=== PATIENT | female | born 1955 | race Caucasian/White ===

== ENCOUNTER 2016-10-31 09:44 | Emergency (ER) | payer BC, OTHER ==
[2016-10-31 10:17] VITALS: BP 143/89
--- NOTE | 2016-10-31 10:57 | RAD ---
Indication: Lateral RIGHT ankle pain and bruising without known injury. Comparison: October 06, 2011 RIGHT foot radiographs. Technique: AP, mortise, and lateral views RIGHT ankle. Report: Bone density appears decreased. No focal osteolysis, fracture, or osteochondral lesion evident. Minimal osteophytosis noted throughout. No significant joint space narrowing at the talocrural, subtalar, or transverse tarsal joints. Small Achilles tendon insertion and plantar fascia origin bone spurs. Mild nonfocal soft tissue swelling. IMPRESSION: Mild osteoarthritis. Bone density appears decreased. Consider DEXA scan for further assessment.
--- NOTE | 2016-10-31 12:20 | UC ---
Lower Extremity/Ankle HPI - HPI Summary HPI Summary: Right lateral ankle foot pain, no discrete injury has been walking in the snow and slipping weight bear with out difficulty, able to drive here today - History of Current Complaint Chief Complaint: UCLowerExtremity Stated Complaint: RIGHT ANKLE PAIN Time Seen by Provider: 10/31/16 12:18 Hx Obtained From: Patient ?: No Onset/Duration: Sudden Onset, Lasting Days, Still Present Severity Initially: Mild Severity Currently: Mild Pain Scale Used: 0-10 Numeric - 4 Aggravating Factor(s): Standing, Ambulation Alleviating Factor(s): Rest, Elevation Able to Bear Weight: Yes - Allergies/Home Medications Allergies/Adverse Reactions: Allergies Allergy/AdvReac Type Severity Reaction Status Date / Time Latex Allergy Severe Blisters Verified 10/31/16 10:09 Sulfa Drugs Allergy Intermediate N/V, Rash Verified 10/31/16 10:09 Amoxicillin [From Augmentin] AdvReac Severe See Comment Verified 10/31/16 10:09 Clavulanic Acid AdvReac Severe Nausea And Verified 10/31/16 10:09 [From Augmentin] Vomiting PMH/Surg Hx/FS Hx/Imm Hx Previously Healthy: No Endocrine History Of: Reports: Thyroid Disease - Hypothyroidism Comment Only: Diabetes - prior to G. Bypass GI/ History Of: Reports: Gall Bladder Disease, Kidney Stones - HX OF LEFT STONE FOR 4 YRS. HX OF LEFT STENT Denies: Ulcer, Gastrointestinal Bleed Psychological History Of: Reports: Depression Other History Of: Negative For: Anticoagulant Therapy - Surgical History Surgical History: Yes Surgery Procedure, Year, and Place: 1981 TUBAL LIGATION- [place]. 1997 BILAT CARPAL TUNNEL RELEASE- [place]. 2003 D&C ABLATION- [place]. ?? YEAR LAP ASHLEIGH- DRS OFFICE- [place]. 2010 LITHOTRIPSY X 4- NEGATIVE RESULTS- [facility] [place], [place]. 2011 GASTRIC BYPASS- [facility] [place] [place]. 2012 EXP LAP- [facility] [place] [place]. 2013 ROTATOR CUFF REPAIR- [place]. 03/2015 INSERTION OF LEFT URETERAL STENT- [facility] [place] [place] - Family History Known Family History: Positive: Unknown Family History: denies cardio, vascular issues in family lineage - Social History Occupation: Unemployed Lives: With Family Alcohol Use: None Substance Use Type: None Smoking Status (MU): Former Smoker Type: Cigarettes Amount Used/How Often: ~1 1/2 PPD Length of Time of Smoking/Using Tobacco: 14 Years Have You Smoked in the Last Year: No When Did the Patient Quit Smoking/Using Tobacco: 1989 Household Exposure Type: Cigarettes - Immunization History Most Recent Influenza Vaccination: June 2016 Most Recent Tetanus Shot: Unk Most Recent Pneumonia Vaccination: June 2016 Review of Systems Constitutional: Negative Skin: Bruising - right lateral ankle Eyes: Negative ENT: Negative Respiratory: Negative Cardiovascular: Negative Gastrointestinal: Negative Genitourinary: Negative Motor: Negative Neurovascular: Negative Musculoskeletal: Arthralgia - right lateral ankle Neurological: Negative Psychological: Negative, Anxious All Other Systems Reviewed And Are Negative: Yes Physical Exam Triage Information Reviewed: Yes Appearance: Well-Appearing - appears older than stated age, No Pain Distress, Well-Nourished Vital Signs: Initial Vital Signs Temp 98.4 F 10/31/16 10:07 Pulse 66 10/31/16 10:07 Resp 16 10/31/16 10:07 BP 143/89 10/31/16 10:07 Pulse Ox 99 10/31/16 10:07 Vital Signs Reviewed: Yes Eye Exam: Normal Eyes: Positive: Conjunctiva Clear ENT Exam: Normal ENT: Positive: Normal ENT inspection, Hearing grossly normal. Negative: Nasal congestion, Nasal drainage, Tonsillar swelling, Tonsillar exudate, Trismus, Muffled/hoarse voice Neck exam: Normal Neck: Positive: Supple, Nontender Respiratory Exam: Normal Respiratory: Positive: Chest non-tender, No respiratory distress, No accessory muscle use Cardiovascular Exam: Normal Cardiovascular: Positive: RRR, Pulses Normal, Brisk Capillary Refill Musculoskeletal Exam: Other Musculoskeletal: Positive: Strength Intact, ROM Intact, No Edema, Other: - bruising lateral aspect of right ankle Neurological Exam: Normal Neurological: Positive: Alert, Muscle Tone Normal Psychological Exam: Normal Psychological: Positive: Normal Response To Family Skin Exam: Normal Diagnostics - Laboratory Diagnostic Studies Completed/Ordered: x-ray negative for acute injury Lower Extremity Course/Dx - Course Course Of Treatment: Rice cam boot, tylenol, follow with Dr. Mcgrath on - Differential Dx/Diagnosis Differential Diagnosis/HQI/PQRI: Contusion, Fracture (Closed), Sprain, Strain Provider Diagnoses: R ankle contusion Discharge - Discharge Plan Condition: Stable Disposition: HOME Patient Education Materials: Acetaminophen (By mouth), Osteoarthritis (ED), Foot Contusion (ED), RICE Therapy (ED) Referrals: Moreno Mcgrath MD [Medical Doctor] - 11/05/16 Paige Morales MD [Primary Care Provider] -
== END 2016-10-31 12:40 | disposition home or self-care (01) ==
LOC: UCCORT 09:44
DX: S90.01XA Contusion of right ankle, initial encounter (principal); W00.0XXA Fall on same level due to ice and snow, initial encounter; E03.9 Hypothyroidism, unspecified; N20.0 Calculus of kidney; Z87.891 Personal history of nicotine dependence; Z98.84 Bariatric surgery status; Z77.22 Contact with and (suspected) exposure to environmental tobacco smoke (acute) (chronic); Z88.1 Allergy status to other antibiotic agents; Z88.2 Allergy status to sulfonamides; Z91.040 Latex allergy status
CPT/HCPCS: 99212; G0463

== ENCOUNTER 2018-07-28 06:05 | Inpatient (IN) | payer BC ==
--- NOTE | 2018-07-19 13:27 | HP ---
CC: Dr. Paige Morales.* DATE OF ADMISSION: 07/28/18 ATTENDING SURGEON: Dr. Chandan Costa * (RIDGE Hodge dictating) CHIEF COMPLAINT: 1. Umbilical hernia. 2. Excess skin following prior bariatric surgery. HISTORY OF PRESENT ILLNESS: This is a 63-year-old generally healthy female who underwent Shyann-en-Y gastric bypass with Dr. Costa in 2011. She had weight loss of about 60 pounds with regain of january 10 and her weight has been stable in the 170s since that time. More recently she was seen for a complaint of lower abdominal pain. CT scan on 12/25/17 did show fatty liver changes, diverticulosis, but without diverticulitis and a small periumbilical hernia. She was seen at that time by Dr. Costa, who felt that her pain was related to the umbilical hernia. In addition, related to the abdominal pannus, she has had ongoing problems with rash, skin breakdown, and increased odor. She has used mostly local and topical measures to keep the skin from breaking down and at the present time there is no active infection nor any open areas. She has not had any GI symptoms related to the umbilical hernia. Dr. Costa was also in to see her today and has explained to her the indications for surgery. The risks , benefits, and alternatives. She understands the need for postoperative drains and expected followup. She would like to proceed as scheduled with open repair of umbilical hernia with possible mesh and panniculectomy. PAST MEDICAL HISTORY: Morbid obesity (status post Shyann-en-Y gastric bypass), nephrolithiasis, environmental allergies, depression, hypothyroidism. PAST SURGICAL HISTORY: Include Shyann-en-Y gastric bypass 2011, laparoscopic lysis of adhesions, and repair of internal hernia 2012. She has also undergone prior laparoscopic cholecystectomy, excision of a right foot bunion, and excision of cysts of the left neck and of the back (all benign). She has also undergone multiple lithotripsies for kidney stones with most recent renal ultrasound in the past year showing no evidence of nephrolithiasis. No reported surgical or anesthesia complications. CURRENT MEDICATIONS: 1. Minocycline 75 mg once daily. 2. Paroxetine 10 mg once daily. 3. Levothyroxine 200 mcg once daily. 4. Aspirin 81 mg once daily (she will hold preoperatively, her last dose being 07/23/18). 5. Bupropion XL 150 mg once daily. 6. Fish oil once daily (last dose 07/23/18). 7. Vitamin D3 2000 IU once daily. 8. Multivitamin once daily. 9. Turmeric 500 mg once daily. 10. Cetirizine 10 mg once daily. 11. Fluocinonide 0.025% topical cream p.r.n. for facial lesions. 12. Vitamin B12 1000 mcg once daily. DRUG ALLERGIES: SULFA and AUGMENTIN both cause nausea, LATEX has caused blistering and itching. FAMILY HISTORY: Negative for anesthesia problems, bleeding or clotting disorders. SOCIAL HISTORY: The patient is . She is not currently working. She is a former smoker who quit in 1989. She denies history of alcohol or other recreational drugs. REVIEW OF SYSTEMS: General: No recent constitutional symptoms or acute illnesses. Her weight has been stable. HEENT: No problems reported. She does use full upper and lower dentures. Cardiovascular: No chest pain, palpitations. She does have a remote history of murmur. She did have an episode of chest pain, which was worked up at [facility] with a negative workup. No interval problems reported. Respiratory: No history of asthma, chronic cough, or shortness of breath. GI: No problems reported. I did not inquire regarding colonoscopy. : No problems reported other than nephrolithiasis. WEDDING CONSULTANT: She is up-to-date within the past year for breast exam, mammogram, pelvic exam and Pap smear, all reportedly normal. Neuropsych: History of depression. No additions. Remainder of review of systems is negative. PHYSICAL EXAMINATION GENERAL: Well-nourished, well-developed female, in no acute distress. SKIN: Warm and dry, no suspicious rashes or lesions noted. VITAL SIGNS: Height 5 feet 2 inches, weight 171 pounds, 1BMI 31. Temperature 98.2, blood pressure 118/74, pulse 68, respirations 16. HEENT: Pupils equal and round, reactive. EOMs intact. No conjunctival pallor. Oropharynx: Full upper and lower dentures. No intraoral lesions. NECK: No lymphadenopathy, thyromegaly, or masses. There is a well-healed left anterior cervical incision from prior cyst removal. LUNGS: Clear to auscultation. No wheezes. HEART: Regular rate and rhythm. No murmur noted. BREASTS: Not examined. ABDOMEN: Well-healed surgical scars. She does have a small umbilical hernia, which is nontender on today's exam. She does have a significant lower abdominal pannus. There is no skin breakdown or evidence of infection or rash. The abdomen is otherwise soft and nontender. BACK: No spinous process or CVA tenderness. EXTREMITIES: No edema. GENITALIA: Not done. RECTAL: Not done. NEUROLOGIC: Grossly intact. IMPRESSION: 1. Umbilical hernia. 2. Excess skin (pannus) following prior bariatric surgery. PLAN: 1. Repair Umbilical Hernia 2. Panniculectomy RIDGE HODGE [id number]/[facility] #: [id number] MTDD
[~2018-07-28 06:05] MED LIST: Buffered Lidocaine 0.9% SYRIN* 5 ML/SYR SYRINGE INTRADERM ONE; Famotidine IV* 10 MG/ML 2 ML (20 mg) IV ONE
[2018-07-28] MEDS ORDERED: ceFAZolin 2 GM PREMIX in ORs 2 GM/50 ML BAG IVPB ONE (06:12)
[2018-07-28] MEDS ORDERED: Heparin VIAL(*) 5000 UNITS/ML VIAL (FIVE THOUSAND) ONE (06:12)
[2018-07-28] MEDS ORDERED: Famotidine IV* 10 MG/ML 2 ML (20 mg) ONE (06:13)
[2018-07-28] MEDS ORDERED: Morphine VIAL* 4 MG/ML VIAL (1 ml vial) IV ONE ×2 (06:16→09:33)
--- OUTSIDE RECORDS SUMMARY | 2018-07-28 06:31 | XMS REPORT ---
:1955 External Reference #:[id number] Author Organization [employer] Address [address] [place] [address] Phone [phone] Care Team Providers Name Role Phone Paige Morales MD Primary Care Physician Unavailable Payers Type Date Identification Numbers Payment Provider Subscriber Commercial Policy Number: [id number] [employer] Pinky Garrett PayID: [id number] [address] [address] [place] [address] Problems Description No Information Family History Date Family Member(s) Problem(s) Comments General Cervical Cancer sister General Heart Disease brother Social History Type Date Description Comments Lives With Occupation works at [employer] ETOH Use Never used alcohol Smoking Patient is a former smoker Exercise Type/Frequency Does not exercise Allergies, Adverse Reactions, Alerts Date Description Reaction Status Severity Comments 11/05/2016 Latex active Blisters and itching 11/05/2016 Sulfa Antibiotics active nausea 11/05/2016 Augmentin active nausea Medications Medication Date Status Form Strength Qnty SIG Indications Ordering Provider Minocycline HCL / Active Capsules 75mg 1 po daily Davi, 0000 MD Franco Paroxetine HCL / Active Tablets 10mg 1 po daily Andrew, 0000 MD Paige Levothyroxine / Active Tablets 200mcg 1 by mouth Unknown Sodium 0000 every day Multi Vitamin 00/ Active Tablets 1 by mouth Unknown 0000 every day Fish Oil / Active Capsules 1 by mouth Unknown 0000 every day Aspirin Ec / Active Tablets DR 81mg 1 by mouth Unknown 0000 every day Vitamin B-12 00/00/ Active Tablets 1 by mouth Unknown 0000 every day Acetaminophen 0000/ Active Tablets 500mg 2 tabs 3 Unknown 0000 times daily prn D3 High Potency 00/00/ Active Capsules 1000Unit take one Unknown 0000 capsule/tabl et daily by mouth ALL Day Allergy / Active Tablets Unknown 0000 Turmeric / Active Capsules 500mg take one Unknown 0000 capsule/tabl et daily by mouth Fluocinonide / Active Cream 0.025% apply Unknown 0000 topically once daily as needed Hydrocodone-Trent / Hx Tablets 5-325mg 1 po every Unknown taminophen 0000 - 4-6 hours 11/11/ prn. 2016 Ibuprofen / Hx Tablets 600mg prescribed Unknown 0000 - by [facility] but patient is 2017 not using. Ondansetron / Hx Tablets 4mg 1 po prn Unknown 0000 Dispers Tamsulosin HCL / Hx Capsules 0.4mg Unknown 0000 - 2016 Vital Signs Date Vital Result Comment 07/19/2018 Height 62 inches 5'2" Weight 171.00 lb Heart Rate 68 /min BP Systolic 118 mmHg BP Diastolic 74 mmHg Respiratory Rate 16 /min Body Temperature 98.2 F BMI (Body Mass Index) 31.3 kg/m2 12/28/2017 Heart Rate 76 /min Respiratory Rate 16 /min Body Temperature 98.5 F 12/17/2017 Height 62 inches 5'2" Weight 181.00 lb Heart Rate 76 /min BP Systolic 100 mmHg BP Diastolic 70 mmHg Respiratory Rate 18 /min Body Temperature 98.1 F BMI (Body Mass Index) 33.1 kg/m2 03/04/2017 Height 62 inches 5'2" Heart Rate 52 /min BP Systolic 106 mmHg BP Diastolic 78 mmHg Respiratory Rate 16 /min Pain Level 7 01/21/2017 Height 62 inches 5'2" Heart Rate 61 /min BP Systolic 94 mmHg BP Diastolic 68 mmHg Respiratory Rate 20 /min Pain Level 3 O2 % BldC Oximetry 97 % 12/24/2016 Height 62 inches 5'2" Weight 165.00 lb Heart Rate 68 /min BP Systolic 130 mmHg BP Diastolic 86 mmHg Respiratory Rate 20 /min Pain Level 7 O2 % BldC Oximetry 98 % BMI (Body Mass Index) 30.2 kg/m2 12/10/2016 Height 62 inches 5'2" Weight 165.00 lb Heart Rate 76 /min BP Systolic Sitting 130 mmHg BP Diastolic Sitting 80 mmHg Respiratory Rate 18 /min Pain Level 4 BMI (Body Mass Index) 30.2 kg/m2 11/19/2016 Height 62 inches 5'2" Weight 165.00 lb Heart Rate 88 /min BP Systolic Sitting 128 mmHg BP Diastolic Sitting 82 mmHg Respiratory Rate 18 /min BMI (Body Mass Index) 30.2 kg/m2 11/05/2016 Weight 165.00 lb per patient Heart Rate 88 /min BP Systolic 100 mmHg BP Diastolic 86 mmHg Respiratory Rate 20 /min Pain Level 1 in her kidney Results Test Date Test Result H/L Range Note Laboratory test 12/17/2017 Blood Urea Nitrogen 24 mg/dL 6-24 finding BUN Creatinine 12/17/2017 Creatinine 0.90 mg/dL 0.51-0.95 Egfr Non- 63.7 >60 Egfr 81.9 >60 1 1 Because ethnic data is not always readily available, this report includes an eGFR for both -Americans and non- Americans. The National Kidney Disease Education Program (NKDEP) does not endorse the use of the MDRD equation for patients that are not between the ages of 18 and 70, are , have extremes of body size, muscle mass, or nutritional status, or are non- or non-. According to the National Kidney Foundation, irrespective of diagnosis, the stage of the disease is based on the level of kidney function: Stage Description GFR(mL/min/1.73 m(2)) 1 Kidney damage with normal or decreased GFR 90 2 Kidney damage with mild decrease in GFR 60-89 3 Moderate decrease in GFR 30-59 4 Severe decrease in GFR 15-29 5 Kidney failure <15 (or dialysis) Procedures Date CPT Code Description Status 12/10/2016 90550 Rad Exam; Ankle Comp Completed Encounters Type Date Location Provider CPT E/M Dx Office Visit 12/28/2017 [facility] [place] [id number] R10.30 10:00a Account Support Rep K42.9 L98.7 M79.3 Z98.84 Office Visit 12/17/2017 10:45a [facility] [place] [address] R10.30 Account Support Rep K59.00 M54.5 Office Visit 03/04/2017 10:15a [facility], 80887 M19.071 Malcom Hicks M.D. Office Visit 01/21/2017 9:15a [facility], 92789 M19.071 [facility] Office Visit 12/24/2016 11:15a [facility], 69806 M19.071 [facility] Office Visit 12/10/2016 9:30a [facility], 63411 M25.571 [facility] S93.401D Office Visit 11/19/2016 2:30p [facility], 10720 S93.401D [facility] Office Visit 11/05/2016 9:00a [facility], 52869 M25.571 [facility] Plan of Care Future Appointment(s):07/28/2018 7:30 am - Deb Washburn NP at [facility]07/28/2018 7:30 am - Chandan Costa MD at [facility]07/19/2018 - Uday Hanna, [id number] Encounter for other preprocedural examination
[2018-07-28] MEDS ORDERED: Bupivacaine 0.5% W/EPI SDV* 30 ML VIAL ONE (07:09)
[2018-07-28] MEDS ORDERED: Midazolam* 1 MG/ML 5 ML VIAL (5 MG) ONE (07:28)
[2018-07-28] MEDS ORDERED: fentaNYL* 50 MCG/ML 2 ML VIAL (100 MCG VIAL) ONE ×2 (07:28→08:40)
[2018-07-28] MEDS ORDERED: Lidocaine 2% PF * 5 ML VIAL ONE (08:22)
[2018-07-28] MEDS ORDERED: Ketorolac INJ* 30 MG/ML 1 ML VIAL ONE (08:22)
[2018-07-28] MEDS ORDERED: Succinylcholine* 20 MG/ML 10 ML VIAL ONE (08:22)
[2018-07-28] MEDS ORDERED: DiMENhydriNATE IV* 50 MG/ML VIAL ONE (08:22)
[2018-07-28] MEDS ORDERED: Ondansetron INJ* 2 MG/ML VIAL ONE (08:22)
[2018-07-28] MEDS ORDERED: EPHEDrine (Pressors)* 50 MG/ML VIAL ONE (08:22)
[2018-07-28] MEDS ORDERED: Dexamethasone IV* 4 MG/ML 1 ML (4 MG) ONE (08:22)
[2018-07-28] MEDS ORDERED: Propofol* 10 MG/ML 20 ML BTL IV PUSH ONE (08:22)
[2018-07-28] MEDS ORDERED: Acetaminophen IV 1GM/100ML * 1,000 MG/100 ML VIAL IVPB ONE (09:24)
[2018-07-28] MEDS ORDERED: DiMENhydriNATE IV* 50 MG/ML VIAL IV PUSH PRN (09:24)
[2018-07-28] MEDS ORDERED: oxyCODONE TAB* 5 MG TAB PO PRN (09:24)
[2018-07-28] MEDS ORDERED: Naloxone* 0.4 MG/ML 1 ML VIAL IV PRN (09:24)
--- NOTE | 2018-07-28 11:25 | OP ---
Operative Report - Blank - Operative Report Date of Operation: 07/28/18 Note: Brief Operative Note Preop Dx: umbilical hernia; excess skin abdominal pannus Postop Dx: same Procedure: umbilical hernia repair; panniculectomy Anesthesia: GET Surgeon: Igor [facility]: RK Hanna PA-S Fluids: 2500 ml crystalloid EBL: < 100 ml Specimen: abdominal pannus Drains: 2 JPs drains; wound VAC Findings: dictated
[2018-07-28] MEDS ORDERED: HYDROmorphone INJ1* 1 MG/ML SYRINGE ONE ×2 (11:37→14:17)
[2018-07-28] MEDS ORDERED: Acetaminophen IV 1GM/100ML * 100 ML ONE (11:38)
[2018-07-28] MEDS: HYDROmorphone INJ1* 1 MG/ML SYRINGE IV PRN ×5 (11:38→12:24)
[2018-07-28] MEDS ORDERED: Ketorolac INJ* 30 MG/ML 1 ML VIAL IV PUSH PRN (11:40)
[2018-07-28] MEDS ORDERED: HYDROmorphone INJ1* 1 MG/ML SYRINGE IV SLOW PU PRN (11:44)
[2018-07-28] MEDS ORDERED: Ondansetron INJ* 2 MG/ML VIAL IV PRN (11:45)
[2018-07-28] MEDS: HYDROmorphone INJ1* 1 MG/ML SYRINGE IV SLOW PU PRN ×2 (14:06→21:37)
[2018-07-28] MEDS: Heparin VIAL(*) 5000 UNITS/ML VIAL (FIVE THOUSAND) SUBCUT SCH ×2 (14:06→21:41)
[2018-07-28] MEDS: Acetaminophen TAB* 325 MG PO PRN (18:17)
[2018-07-29] MEDS: Acetaminophen TAB* 325 MG PO PRN ×2 (05:49→13:48)
[2018-07-29] MEDS: Heparin VIAL(*) 5000 UNITS/ML VIAL (FIVE THOUSAND) SUBCUT SCH ×2 (05:51→15:07)
[2018-07-29] MEDS ORDERED: Levothyroxine TAB* 100 MCG TAB PO SCH (06:00)
[2018-07-29] MEDS ORDERED: BuPROPion XL* 150 MG TAB.XL PO SCH (09:00)
[2018-07-29] MEDS ORDERED: PARoxetine HCL TAB* 10 MG PO SCH (09:00)
[2018-07-29] MEDS ORDERED: Aspirin EC TAB* 81 MG TAB.EC PO SCH (09:00)
[2018-07-29] MEDS ORDERED: Cetirizine* 10 MG TAB PO SCH (09:00)
--- NOTE | 2018-07-29 10:07 | OP ---
CC: Dr. Paige Mor[facility]; [facility] DATE OF OPERATION: 07/28/18. DATE OF : 57. SURGEON: Chandan Costa MD. BUS DRIVER/MONITOR: RIDGE Grimaldo. ANESTHESIOLOGIST: Dr. Schulte ANESTHESIA: General. PRE-OP DIAGNOSES: Umbilical hernia and excess skin at the abdominal pannus. POST-OP DIAGNOSES: Umbilical hernia and excess skin at the abdominal pannus. OPERATIVE PROCEDURE: Umbilical hernia repair and panniculectomy. ESTIMATED BLOOD LOSS: Less than 100 cc. FLUIDS: 2500 cc of crystalloid fluid given. SPECIMENS: Abdominal pannus. DRAINS: Two #7 GINO drains left in the subcutaneous space. We also utilized a wound VAC overlying the main incision. DESCRIPTION OF PROCEDURE: Ms. Cornell is a 63-year-old female, status post gastric bypass with significant weight loss, who has been struggling with a large pannus that prevents her from doing regular activities. She also has been having an umbilical hernia that has been somewhat uncomfortable and symptomatic at times. It was recommended for an umbilical hernia repair along with panniculectomy. The procedure was described to her going over the risks, benefits, and alternatives including bleeding, infection, need for additional procedures, breakdown of skin, ischemia, ischemic edges of the umbilicus, recurrent hernia, and cosmetic variances that she might be unexpected. The patient signed consent knowingly and was identified in the preoperative area. Her abdomen was marked where we had made the incisions; pannus as well as the midline, right up the costal margins. The patient was then marked, brought into the the operating room and placed on the operating table in supine position. Preoperative antibiotics were given. Sequential devices were placed on bilateral lower extremities. General anesthesia was induced. The patient's abdomen was prepped and draped in standard surgical fashion. A time-out was performed. The patient was re-marked on the table in the supine, starting at the anterior superior iliac spines bilaterally, extending this towards approximately 2 fingerbreadths above the pubic tubercle. This incision was made. This was deepened down through skin and subcutaneous tissue, down to the anterior fascia. Flaps were made superiorly sending up towards the umbilicus. We got to the umbilicus, the umbilical skin was then excised keeping a broad stalk of the umbilicus right down to the fascia. Next, the inferior aspect of the skin that would be the resected portion was then split to allow for more convenient dissection superiorly. This dissection was carried up in the appropriate fascial planes right up to the costal margins bilaterally and right up to the xiphoid. Hemostasis was achieved. We then irrigated the wounds and saw no evidence of bleeding. Attention was turned towards the umbilicus. The defect appeared approximately 1 cm. We dissected the superior aspect of the umbilical stalk until we could appreciate as best as the herniated area. We then chose to imbricate the fascia overlying this with 0 Surgipro sutures using 2 sutures in all. Next, we brought the skin down towards the lower folds. I made a decision on to where we would make our resection. The pannus was excised and passed off as specimen. Hemostasis was achieved. We then brought the skin edges together with interrupted 2-0 Vicryl sutures. The umbilical skin was then re-sited through a small incision that was made in the appropriate fashion in the midline. We then brought in two 7 GINO drains through separate stab incisions just inferior to our incision and placed these both on the left and right side of the dissected area. Again, hemostasis was assured and then we closed the lower incision, both with interrupted 2-0 Polysorb sutures with intermittent 3- 0 Vicryl sutures, followed by running 4-0 Monocryl subcuticular sutures. It did show some dog-earing, especially on the right side, but I felt this was adequate. Skin edges appeared intact without evidence of ischemia. Next, attention was turned towards the umbilicus. This was brought out through the incision that I had made and the skin edges were sutured with 4-0 chromic sutures in an interrupted fashion. Xeroform was placed at the umbilicus followed by a gauze and a sterile dressing. We then placed a vacuum dressing at her panniculectomy incision site. The suction was appropriate and the patient was woken up and transferred to the PACU in stable condition. [id number]/[facility] #: [id number] MARY ANN
[2018-07-29 15:45] VITALS: BP 95/55
== END 2018-07-29 17:40 | disposition home or self-care (01) | DRG 227 ==
LOC: AA 06:05 → SSU 12:54
PROVIDERS: ADMIT Surgery; ATTEND Surgery
PROC: 0HB7XZZ Excision of Abdomen Skin, External Approach (ICD-10-PCS; 2018-07-28)
PROC: 0WQF0ZZ Repair Abdominal Wall, Open Approach (ICD-10-PCS; principal; 2018-07-28 07:30)
DX: K42.9 Umbilical hernia without obstruction or gangrene (principal); K57.90 Diverticulosis of intestine, part unspecified, without perforation or abscess without bleeding; E65 Localized adiposity; M19.90 Unspecified osteoarthritis, unspecified site; F32.9 Major depressive disorder, single episode, unspecified; E03.9 Hypothyroidism, unspecified; Z90.49 Acquired absence of other specified parts of digestive tract; Z88.2 Allergy status to sulfonamides; Z88.1 Allergy status to other antibiotic agents; Z91.011 Allergy to milk products; Z98.84 Bariatric surgery status; Z87.442 Personal history of urinary calculi; Z91.048 Other nonmedicinal substance allergy status; Z87.891 Personal history of nicotine dependence
CPT/HCPCS: 88300; A9270-GY; J0330; J0690; J1100; J1170; J1240; J1644; J1885; J2250; J2270; J2405; J2704; J3010

== ENCOUNTER → 2019-05-25 | Day surgery (SDC) | payer BC ==
[~2019-05-25] MED LIST changes: -Buffered Lidocaine 0.9% SYRIN* 5 ML/SYR SYRINGE INTRADERM ONE; +Buffered Lidocaine 1% SYRIN* 1 ML/SYRINGE INTRADERM ONE; +Dexamethasone IV* 4 MG/ML 1 ML (4 MG) IV SLOW PU ONE; +Dexamethasone IV* 4 MG/ML 1 ML (4 MG) ONE; +DiMENhydriNATE IV* 50 MG/ML VIAL IV PUSH PRN; +EPHEDrine (Pressors)* 50 MG/ML VIAL ONE; +Famotidine IV* 10 MG/ML 2 ML (20 mg) ONE; +HYDROmorphone INJ1* 1 MG/ML SYRINGE IV PRN; +Lactated Ringers 1000 ML Bag* 1,000 ML IV SCH; +Midazolam* 1 MG/ML 5 ML VIAL (5 MG) ONE; +Naloxone* 0.4 MG/ML 1 ML VIAL IV PRN; +Ondansetron INJ* 2 MG/ML VIAL IV PRN; +Ondansetron INJ* 2 MG/ML VIAL ONE; +Propofol* 10 MG/ML 20 ML BTL ONE; +ROPIVACAINE 5 MG/ML 30 ML BTL (0.5%) ONE; +ceFAZolin 2 GM in NS PREMIX(*) 2 GM/100 ML BAG IVPB ONE; +fentaNYL* 50 MCG/ML 2 ML VIAL (100 MCG VIAL) IV PRN; +fentaNYL* 50 MCG/ML 2 ML VIAL (100 MCG VIAL) ONE; +oxyCODONE/Acetamin 5/325 MG* TAB PO PRN
[2019-05-25 12:50] VITALS: BP 106/60
--- NOTE | 2019-05-26 10:03 | OP ---
CC: Oncologist; PCP OPERATIVE REPORT: DATE OF OPERATION: 05/25/19 DATE OF : 57 SURGEON: Eulogio Meadows MD. REGISTERED PHYSICAL THERAPIST: RIDGE Alcantara. An regulatory affairs assistant was needed for the entirety of the case to help with positioning, retraction, and utiliz ed throughout all portions of the case. ANESTHESIOLOGIST: Dr. Stewart. ANESTHESIA: General interscalene block. PRE-OP DIAGNOSIS: Left shoulder full-thickness tear of the rotator cuff in the setting of someone wi th chronic myelogenous leukemia. POST-OP DIAGNOSIS: Left shoulder full thickness tear of the rotator cuff in the setting of someone w ith chronic myelogenous leukemia. OPERATIVE PROCEDURE: Left shoulder arthroscopy with: 1. Extensive glenohumeral debridement. 2. Subacromial decompression with acromioplasty. 3. Rotator cuff repair of the supraspinatus tendon in double-row fashion. 4. Arthroscopic biceps tenodesis. COMPLICATIONS: None. ESTIMATED BLOOD LOSS: Minimal. IMPLANTS USED: Two Healicoil and 2 Multifix. INDICATIONS: Pinky Garrett is a 64-year-old female who has had persistent shoulder pain when she lift ed something very heavy at the end of January. She had a pop and a lot of pain. She also has a history of CML, which she is being treated for. She had a discussion with her oncologist and has had persist ent pain and lack of function. She is typically very active despite the CML and has significant dysf unction. She would like to have something done. After extensive discussion of the risks and benefit s of surgery versus nonoperative treatment, she has elected to proceed with surgical treatment. Risk s included but not limited to bleeding; infection; damage to nerves, vessels, surrounding structures; wound nonhealing; persistent pain; need for surgery; scarring; stiffness; incomplete relief of sympt oms; risks of anesthesia; need for further surgery; failure of the hardware; fracture; incomplete rel ief of symptoms; inability to repair. DESCRIPTION OF PROCEDURE: The patient was greeted in the preoperative area by the attending surgeon, correct extremity was marked, consent was confirmed. The patient then underwent interscalene nerve block by the anesthesiologist, after which she was brought back to the operating suite, placed in the supine position on the operating table, then underwent general anesthesia with endotracheal intubati on, after which she was placed in the right lateral decubitus position. All bony prominences were pad ded. She was secured with a peg board. An axillary roll was placed. The left arm was prepped and d raped in the usual sterile fashion beginning with chlorhexidine soap, scrub, and alcohol wipe, and a final prep with ChloraPrep. After appropriate surgical pause indicating site, side, procedure, administration of antibiotics, a s tandard posterolateral portal was made sharply with an 11 blade. Scope was introduced into the joint. The joint was examined. There was abundant synovitis that was present as well as tearing of the an terior, posterior, and superior labrum. The biceps was subluxed with damage to the biceps amrit. T here was full-thickness tear of the supraspinatus tendon. Subscap had some partial tearing but was g rossly intact. The inferior recess was intact. She had grade 0 to 1 changes of the glenohumeral ana laura nt. The anterior portal was made in an outside- in fashion. Shaver was used to debride back the uns table anterior, posterior, and superior labrum. Biceps was tenotomized, but it was tagged for possib le arthroscopic tenodesis. Once the intraarticular work was completed, attention was directed to the subacromial space. With the scope positioned in the subacromial space, lateral portal was made in an outside-in fashion. Shaver was used to debride back the abundant synovitis and bursitis that was present. After this w as done, the undersurface of the acromion was skeletonized using electrocautery device and then a 4-0 oval bur was used to do an acromioplasty. Once this was done, all loose debride was removed. Atten tion was directed to the rotator cuff. The very anterior aspect of the supraspinatus had tearing. The greater tuberosity was then skeletoni zed. The tear was a medium size tear with some retraction. The tuberosity was gently debrided, firs t skeletonized with electrocautery, then rasped, then a bur was used to gently decorticate, after whi ch the soft tissue was mobilized. Once it was exposed, any scar tissue and poor quality tissue was r emoved. Decision was made to first do a biceps tenodesis and then repair the remainder of the cuff. Through a separate stab incision, an anchor was placed just adjacent to the bicipital groove. She h ad moderate quality bone, therefore a tack needed to be used for the anchor placement. Once this was placed with excellent purchase, 1 strand of suture was then passed through the biceps in a lip-locki ng fashion to tenodese the biceps. The remainder of the suture limb was going to be used to repair t he cuff. The attention was directed to the cuff. Through a separate stab incision, a second Healicoil was placed in the center of the footprint. Agai n the bone quality actually appeared to be fairly good and screw hole had to be tacked. The Healicoi l was then placed with excellent purchase. At this point, beginning very anteriorly the sutures were then passed through the supraspinatus tendon and inferiorly and then subsequently in a horizontal ma ttress fashion all the way posteriorly to allow to bring the cuff and restore it. Then knot-tying be cali inferiorly to the cuff to reapproximate the cuff nicely to the footprint. After this was complet e, sutures were . There were 4 strands, each placed through 2 separate Multifix, 1 was plac ed more anterolaterally and 1 was posterolaterally for a double row fixation. This approximated the cuff very well. The final images were taken and the wounds were copiously irrigated with sterile hamida ine. The portals were then closed with 3-0 nylon in interrupted fashion. Sterile dressings were jaylan lied. A Cryo/Cuff and UltraSling were applied. She was awoken from anesthesia, transferred to PACU in stable condition. POSTOPERATIVE PLAN: She will be nonweightbearing. She will be in a sling for 6 weeks. She will be discharged on pain medication. DVT prophylaxis considered but deferred due to no previous personal o r family history. I will see the patient back in 10 to 14 days. [id number]/[facility] #: [id number]
== END | disposition home or self-care (01) ==
LOC: OR 07:17
PROVIDERS: ATTEND Orthopaedic Surgery
DX: S46.012A Strain of muscle(s) and tendon(s) of the rotator cuff of left shoulder, initial encounter (principal); M75.22 Bicipital tendinitis, left shoulder; X50.0XXA Overexertion from strenuous movement or load, initial encounter; Y92.9 Unspecified place or not applicable; C92.10 Chronic myeloid leukemia, BCR/ABL-positive, not having achieved remission; G89.18 Other acute postprocedural pain; I10 Essential (primary) hypertension; K21.9 Gastro-esophageal reflux disease without esophagitis; E03.9 Hypothyroidism, unspecified; M10.9 Gout, unspecified; Z87.891 Personal history of nicotine dependence
CPT/HCPCS: C1713; J0690; J1100; J2250; J2405; J2704; J2795; J3010

== ENCOUNTER 2019-11-16 05:47 | Day surgery (SDC) | payer BC ==
[~2019-11-16 05:47] MED LIST changes: -Dexamethasone IV* 4 MG/ML 1 ML (4 MG) IV SLOW PU ONE; -Dexamethasone IV* 4 MG/ML 1 ML (4 MG) ONE; -DiMENhydriNATE IV* 50 MG/ML VIAL IV PUSH PRN; -EPHEDrine (Pressors)* 50 MG/ML VIAL ONE; -Famotidine IV* 10 MG/ML 2 ML (20 mg) IV ONE; -Famotidine IV* 10 MG/ML 2 ML (20 mg) ONE; -HYDROmorphone INJ1* 1 MG/ML SYRINGE IV PRN; -Lactated Ringers 1000 ML Bag* 1,000 ML IV SCH; -Midazolam* 1 MG/ML 5 ML VIAL (5 MG) ONE; -Naloxone* 0.4 MG/ML 1 ML VIAL IV PRN; -Ondansetron INJ* 2 MG/ML VIAL IV PRN; -Ondansetron INJ* 2 MG/ML VIAL ONE; -Propofol* 10 MG/ML 20 ML BTL ONE; -ROPIVACAINE 5 MG/ML 30 ML BTL (0.5%) ONE; -ceFAZolin 2 GM in NS PREMIX(*) 2 GM/100 ML BAG IVPB ONE; -fentaNYL* 50 MCG/ML 2 ML VIAL (100 MCG VIAL) IV PRN; -fentaNYL* 50 MCG/ML 2 ML VIAL (100 MCG VIAL) ONE; -oxyCODONE/Acetamin 5/325 MG* TAB PO PRN
[2019-11-16] MEDS ORDERED: Buffered Lidocaine 1% SYRIN* 1 ML/SYRINGE INTRADERM ONE (05:49)
[2019-11-16] MEDS ORDERED: Clindamycin 900 MG/D5W BAG(*) 900 MG/50 ML BAG IVPB ONE (05:49)
[2019-11-16] MEDS ORDERED: Lactated Ringers 1000 ML Bag* 1,000 ML IV SCH (06:00)
[2019-11-16] MEDS ORDERED: Bupivacaine 0.5% W/EPI SDV* 30 ML VIAL ONE (07:04)
[2019-11-16] MEDS ORDERED: Lidocaine 2% PF * 5 ML VIAL ONE (07:05)
[2019-11-16] MEDS ORDERED: Dexamethasone IV* 4 MG/ML 1 ML (4 MG) ONE (07:05)
[2019-11-16] MEDS ORDERED: Ondansetron INJ* 2 MG/ML VIAL ONE (07:05)
[2019-11-16] MEDS ORDERED: Midazolam* 1 MG/ML 5 ML VIAL (5 MG) ONE (07:05)
[2019-11-16] MEDS ORDERED: Ketorolac INJ* 30 MG/ML 1 ML VIAL ONE (07:05)
[2019-11-16] MEDS ORDERED: Propofol* 10 MG/ML 20 ML BTL ONE (07:05)
[2019-11-16] MEDS ORDERED: Rocuronium* 10 MG/ML VIAL ONE (07:05)
[2019-11-16] MEDS ORDERED: fentaNYL* 50 MCG/ML 2 ML VIAL (100 MCG VIAL) ONE ×2 (07:05→10:24)
[2019-11-16] MEDS ORDERED: EPHEDrine (Pressors)* 50 MG/ML VIAL ONE (07:38)
[2019-11-16] MEDS ORDERED: Phenylephrine 10 MG/ML VIAL* 1 ML VIAL ONE (07:49)
[2019-11-16] MEDS ORDERED: Naloxone* 0.4 MG/ML 1 ML VIAL IV PRN (08:36)
[2019-11-16] MEDS ORDERED: Ondansetron INJ* 2 MG/ML VIAL IV PRN (08:36)
[2019-11-16] MEDS ORDERED: Acetaminophen IV 1GM/100ML * 1,000 MG/100 ML VIAL IVPB ONE (08:36)
[2019-11-16] MEDS ORDERED: Sugammadex * 200 MG/2 ML VIAL IV PUSH ONE (09:16)
--- NOTE | 2019-11-16 09:34 | BRIEFOPN ---
Brief Operative/Procedure Note - Operation Details Pre-Op Diagnosis: Ventral hernia Post-Op Diagnosis: Ventral hernia Procedures: Robotic ventral hernia repair with mesh Surgeon(s)/Proceduralists: Dr. Costa. Assist: Boogie Anesthesia: GETLogan Estimated Blood Loss: <25cc Findings: As above Specimen(s)/Culture(s) Description: None Complications: None
[2019-11-16] MEDS ORDERED: Acetaminophen IV 1GM/100ML * 100 ML ONE (10:24)
[2019-11-16] MEDS: fentaNYL* 50 MCG/ML 2 ML VIAL (100 MCG VIAL) IV PRN ×2 (10:28→10:39)
[2019-11-16] MEDS ORDERED: oxyCODONE TAB* 5 MG TAB ONE (11:30)
[2019-11-16 11:36] VITALS: BP 112/59
--- NOTE | 2019-11-17 01:47 | OP ---
DATE OF OPERATION: 11/16/19 - [facility] DATE OF : 57 ADDENDUM: DESCRIPTION OF PROCEDURE: Mrs. Garrett was evaluated in the preoperative area. I went over the procedure with her again. She isolated the areas of her most discomfort and these were marked. She was then taken to the operating room and placed on the operating room table in supine position. Preoperative antibiotics were given. Sequential devices were placed on bilateral lower extremities. The lower Russell Hugger was placed and the patient's abdomen was prepped and draped in a standard surgical fashion and a time-out was performed. An incision was made at the Xavier's point which was deepened down to the anterior fascia, which was lifted and a Veress needle inserted into the abdominal cavity which was allowed to insufflate to a pressure of 15 mmHg. The patient tolerated the insufflation well. Veress needle was removed and a robotic 8 mm trocar was inserted using optical approach with a 5 mm camera. We entered into the abdomen which showed no significant adhesions to the anterior abdominal wall. There was no evidence of injury from the trocar insertion. Review of the small bowel appeared pink and viable. There was no free fluid. After measuring off from the area where the anticipated hernia was, we placed 2 additional 8 mm robotic trocars along the left abdomen after swapping out for the robotic camera. Next, reviewed the abdomen now with 30-degree camera and we identified the hernia right at the area of a falciform. This epigastric or ventral hernia was unclear if this had been originally an incisional hernia from previous laparoscopy, but it appeared to be about 1.5 cm. Attention was then turned towards the cecum. The terminal ileum identified, again it was normal appearing without distention. We ran the common limb proximally right up to the jejunojejunostomy which again was intact. I did not run the individual limbs, rather looked at the area of the gastro-jejunum and this appeared intact and then turned our attention to the hernia defect. Next, the robot was docked, and after this docking, I went to the console. At the console, we were able to use scissors to enter the preperitoneal space on the left and extend towards her hernia dissecting the full area of the hernia down, it was preperitoneal fat, which was reduced into the abdomen and we continued our dissection laterally. No additional defects were identified. Defect was approximately 1.5 cm. We stayed within this preperitoneal space and we made a good area that we would utilize to close the peritoneum. Next, a 0 Stratafix was utilized, starting the suturing superiorly approximately 0.5 cm away from the defect. We closed the defect in a running fashion, taking up the portion of the defect to try to obliterate the space to prevent seromas. Once the closure of the fascia was done, a 4.3 cm Ventralex mesh was utilized. This was sutured to the anterior abdominal wall with the same Stratafix suture before cutting the suture. Mesh lay without wrinkling and completely covered the defect. Next, we closed the peritoneum with a running 3-0 V-Loc starting superiorly and extended this inferiorly. This fully hid the mesh, and reviewed the abdomen, there was no bleeding, no enteric contents. We then allowed the abdomen to collapse. Trocar was removed under direct vision after the robot was undocked and we then turned our attention to the left upper quadrant initial port site. We did shift this more laterally prior to docking the robot, and for this reason, I closed this with a Weck device using an 0 Vicryl suture in a simple fashion. The abdomen again was allowed to collapse and we then closed all 3 skin incisions with 4-0 Monocryl subcuticular sutures followed by Steri-Strips and sterile dressing. The patient was woken up and transferred to the PACU in stable condition. [id number]/[facility] #: [id number] MARY ANN
--- NOTE | 2019-11-17 02:38 | OP ---
CONTINUATION ADDENDUM NOW INCLUDED ON THIS REPORT CC: Primary care doctor; [facility] * DATE OF OPERATION: 11/16/19 - [facility] DATE OF : 57 SURGEON: Dr. Costa. ASSISTANTS: Kadi Gao and Eros Galvan. ANESTHESIA: General anesthesia. PRE-OP DIAGNOSIS: Ventral hernia. POST-OP DIAGNOSIS: Ventral hernia. OPERATIVE PROCEDURES: Laparoscopic laparoscopy and robotic repair of ventral hernia with mesh. ESTIMATED BLOOD LOSS: Minimal. FLUIDS: Minimal crystalloid fluid given, see Anesthesia documentation for additional information. SPECIMEN: None. FINDINGS: Normal gastric bypass anatomy and small 1.5 cm ventral hernia. COMPLICATIONS: None. CONTINUATION ADDENDUM: DESCRIPTION OF PROCEDURE: Mrs. Garrett was evaluated in the preoperative area. I went over the procedure with her again. She isolated the areas of her most discomfort and these were marked. She was then taken to the operating room and placed on the operating room table in supine position. Preoperative antibiotics were given. Sequential devices were placed on bilateral lower extremities. The lower Russell Hugger was placed and the patient's abdomen was prepped and draped in a standard surgical fashion and a time-out was performed. An incision was made at the Xavier's point which was deepened down to the anterior fascia, which was lifted and a Veress needle inserted into the abdominal cavity which was allowed to insufflate to a pressure of 15 mmHg. The patient tolerated the insufflation well. Veress needle was removed and a robotic 8 mm trocar was inserted using optical approach with a 5 mm camera. We entered into the abdomen which showed no significant adhesions to the anterior abdominal wall. There was no evidence of injury from the trocar insertion. Review of the small bowel appeared pink and viable. There was no free fluid. After measuring off from the area where the anticipated hernia was, we placed 2 additional 8 mm robotic trocars along the left abdomen after swapping out for the robotic camera. Next, reviewed the abdomen now with 30-degree camera and we identified the hernia right at the area of a falciform. This epigastric or ventral hernia was unclear if this had been originally an incisional hernia from previous laparoscopy, but it appeared to be about 1.5 cm. Attention was then turned towards the cecum. The terminal ileum identified, again it was normal appearing without distention. We ran the common limb proximally right up to the jejunojejunostomy which again was intact. I did not run the individual limbs, rather looked at the area of the gastro-jejunum and this appeared intact and then turned our attention to the hernia defect. Next, the robot was docked, and after this docking, I went to the console. At the console, we were able to use scissors to enter the preperitoneal space on the left and extend towards her hernia dissecting the full area of the hernia down, it was preperitoneal fat, which was reduced into the abdomen and we continued our dissection laterally. No additional defects were identified. Defect was approximately 1.5 cm. We stayed within this preperitoneal space and we made a good area that we would utilize to close the peritoneum. Next, a 0 Stratafix was utilized, starting the suturing superiorly approximately 0.5 cm away from the defect. We closed the defect in a running fashion, taking up the portion of the defect to try to obliterate the space to prevent seromas. Once the closure of the fascia was done, a 4.3 cm Ventralex mesh was utilized. This was sutured to the anterior abdominal wall with the same Stratafix suture before cutting the suture. Mesh lay without wrinkling and completely covered the defect. Next, we closed the peritoneum with a running 3-0 V-Loc starting superiorly and extended this inferiorly. This fully hid the mesh, and reviewed the abdomen, there was no bleeding, no enteric contents. We then allowed the abdomen to collapse. Trocar was removed under direct vision after the robot was undocked and we then turned our attention to the left upper quadrant initial port site. We did shift this more laterally prior to docking the robot, and for this reason, I closed this with a Weck device using an 0 Vicryl suture in a simple fashion. The abdomen again was allowed to collapse and we then closed all 3 skin incisions with 4-0 Monocryl subcuticular sutures followed by Steri-Strips and sterile dressing. The patient was woken up and transferred to the PACU in stable condition. [id number]/[facility] #: [id number]- [id number]/[facility] #: [id number] MARY ANN
== END 2019-11-16 12:10 | disposition home or self-care (01) ==
LOC: OR 05:47
PROVIDERS: ATTEND Surgery
DX: K43.2 Incisional hernia without obstruction or gangrene (principal); J31.0 Chronic rhinitis; I10 Essential (primary) hypertension; F41.8 Other specified anxiety disorders; E03.9 Hypothyroidism, unspecified; E78.5 Hyperlipidemia, unspecified; Z85.6 Personal history of leukemia; Z87.891 Personal history of nicotine dependence; Z88.2 Allergy status to sulfonamides; Z88.1 Allergy status to other antibiotic agents; Z91.040 Latex allergy status; Z98.84 Bariatric surgery status; Z68.32 Body mass index [BMI] 32.0-32.9, adult
CPT/HCPCS: A9270-GY; C1781; J1100; J1885; J2250; J2405; J2704; J3010

== ENCOUNTER 2024-07-27 07:40 | Observation (INO) ==
[~2024-07-27 07:40] MED LIST changes: -Buffered Lidocaine 1% SYRIN* 1 ML/SYRINGE INTRADERM ONE; +Metoclopramide 5 MG/ML VIAL (10 mg) IV PRN; +NS 0.45% 1000 ml BAG 1,000 ML IV SCH; +Naloxone 0.4 mg VIAL 0.4 mg/ml 1 ml VIAL IV PRN; +Ondansetron 4 mg VIAL 2 MG/ML 2 ml VIAL IV PRN
[2024-07-27] MEDS ORDERED: Chlorhexidine MOUTHWASH 0.12% 15 ML UDC ONE (07:50)
[2024-07-27] MEDS ORDERED: ceFAZolin 2 GM PREMIX 2 GM/50 ML BAG ONE (07:55)
[2024-07-27 08:25] LABS: Rapid COVID-19 Molecular Undetected (Undetected)
[2024-07-27] MEDS ORDERED: Lidocaine 1% w EPI 1:100,000 MDV 20 ML VIAL ONE (09:40)
[2024-07-27] MEDS ORDERED: ceFAZolin VIAL VIAL ONE (09:41)
[2024-07-27] MEDS ORDERED: Thrombin 5,000 UNITS 1 APPLIC KIT - topical use - TOPICAL ONE (09:41)
[2024-07-27] MEDS ORDERED: Midazolam 2 mg/2 ml VIAL 1 mg/ml 2 ml VIAL (2 mg) ONE (09:59)
[2024-07-27] MEDS ORDERED: fentaNYL 100 mcg/2 ml 50 MCG/ML VIAL ONE ×3 (09:59→12:22)
[2024-07-27] MEDS ORDERED: Rocuronium 50 mg VIAL 10 mg/ml 5 ml VIAL (50 mg) ONE (10:21)
[2024-07-27] MEDS ORDERED: Dexamethasone IV 4 MG/ML VIAL 1 ml VIAL ONE (11:33)
[2024-07-27] MEDS ORDERED: Propofol 10 MG/ML 20 ML BTL ONE (11:33)
[2024-07-27] MEDS ORDERED: Ondansetron 4 mg VIAL 2 MG/ML 2 ml VIAL ONE (11:33)
[2024-07-27] MEDS ORDERED: Glycopyrrolate IV 0.2 MG/ML 1 ML VIAL ONE (11:34)
[2024-07-27] MEDS ORDERED: Ondansetron 4 mg VIAL 2 MG/ML 2 ml VIAL IV PRN (11:53)
[2024-07-27] MEDS ORDERED: Phenol 1.4% Throat Spray BTL MT PRN (11:53)
[2024-07-27] MEDS ORDERED: Senna TAB 8.6 mg TAB PO PRN (11:53)
[2024-07-27] MEDS ORDERED: Magnesium Hydroxide LIQ 30 ML UDC PO PRN (11:53)
[2024-07-27] MEDS ORDERED: Calcium Carb (TUMS) 500 mg CHEW TAB PO PRN (11:53)
[2024-07-27] MEDS ORDERED: Benzocaine/Menthol LOZ MT PRN (11:53)
[2024-07-27] MEDS ORDERED: Dextran 70/Hypromellose Tears Eye Drops 15 ml BTL (for Artificials Tears) BOTH EYES PRN (11:53)
[2024-07-27] MEDS: fentaNYL 100 mcg/2 ml 50 MCG/ML VIAL IV PRN (12:28)
[2024-07-27] MEDS: Acetaminophen IV 1 GM/100ML 1,000 MG/100 ML BAG IV ONE (12:45)
[2024-07-27] MEDS: Scopolamine 1 mg/72hr PATCH TRANSDERM ONE (12:46)
[2024-07-27] MEDS: Lactated Ringers 1000 ml BAG 1,000 ML IV SCH ×2 (12:46→14:23)
[2024-07-27] MEDS: Buffered Lidocaine 1% SYRIN 1 ml INTRADERM ONE (12:46)
[2024-07-27] MEDS: Morphine 2 MG/ML SYRINGE IV PRN (15:08)
[2024-07-27] MEDS: Insulin GLARGINE 100 un/ml 10 ml VIAL SUBCUT SCH (22:26)
[2024-07-28 10:14] VITALS: BP 125/64
== END 2024-07-28 11:33 | disposition home or self-care (01) ==
LOC: SSU 07:40 → OR 07:40
PROVIDERS: ADMIT Neurological Surgery; ATTEND Neurological Surgery